=== PATIENT | female | born 1970 | race Two or more races ===

== ENCOUNTER 2025-02-26 21:58 | Emergency (ER) | payer SELFPAY ==
[2025-02-26 22:01] VITALS: BMI 26.8
[2025-02-26 22:15] VITALS: BP 185/88; PULSE 71; RESP 16; TEMP 36.9; O2SAT 98
--- NOTE | 2025-02-26 23:00 | PD.EDALLER ---
ED Allergic Reaction RME/HPI General Chief complaint: Allergic Reaction Stated complaint: ALLERGY Arrival date/time: 02/26/25 21:58 RME / HPI RME / HPI narrative: Dr. Mckee?s Main ED Evaluation: 54yo female with a history of HTN presents to the ED for an allergic reaction. Patient states she ate a doreen and banana tonight, reporting she started having right eye swelling, throat swelling, and shortness of breath 30 minutes later, so she came in for evaluation. Patient denies using any new soaps, makeup or taking any new medications. Patient denies any other associated symptoms. Related Data Previous Rx's ?Medication ?Instructions ?Recorded diphenhydramine HCl 50 mg capsule 50 mg PO TID PRN allergic reaction 02/27/25 #20 caps prednisone 50 mg tablet 50 mg PO QDAY #5 tabs 02/27/25 Allergies Allergy/AdvReac Type Severity Reaction Status Date / Time No Known Allergies Allergy Verified 02/26/25 22:19 Review of Systems Review of Systems Systems Reviewed: All systems reviewed, normal except as documented Past Medical History Past Medical History CARDIAC: Positive Hypertension; Negative Congestive Heart Failure RESPIRATORY: Negative Chronic Obstructive Pulmonary Disease (COPD) GENITOURINARY: Negative Renal Disease ENDOCRINE: Negative Diabetes Mellitus Type 1 or Diabetes Mellitus Type 2 Social History SMOKING STATUS: Never smoker ED Exam Narrative Physical exam: GENERAL APPEARANCE: AxOx4, generally well-appearing, no acute distress. HEENT: NC, AT. MMM. EOMI, clear conjunctiva, swelling to the right eye without any tenderness or erythema, oropharynx clear. uvular swelling. NECK: Supple without lymphadenopathy. No stiffness or restricted ROM. HEART: Normal rate and regular rhythm, normal S1/S1, no m/r/g LUNGS: CTAB, moving air well. No crackles or wheezes are heard. ABDOMEN: Soft, nontender, nondistended with good bowel sounds heard. BACK: No midline C/T/L spine pain or deformity, No CVAT, no obvious deformity. EXTREMITIES: Without cyanosis, clubbing or edema. MUSCULOSKELETAL: FROM of all major joints, no chest tenderness NEUROLOGICAL: Grossly nonfocal. Alert and oriented, moving all 4 extremities. CN not formally tested but appear grossly intact. Skin: Warm and dry without any rash. Course Course Course Narrative: Observation began at 2300 and was necessary in order to determine if the patient will have worsening or improvement of symptoms. 0204: Patient is now able to open her right eye. Patient does have some uvular swelling, but is resting comfortably without any difficulty. Upon reevaluation, observation revealed that the patient should be discharged. Observation ended at 0204. Total time of observation 4 hours Quality Measures none Orders Category Date Time Status DiphenhydrAMINE INJ [Benadryl Inj] Med 02/26/25 22:58 Discontinued 50 mg IV X1 ONE Famotidine Inj [Pepcid Inj] Med 02/26/25 22:58 Discontinued 40 mg IVP X1 ONE predniSONE Med 02/26/25 22:58 Discontinued 60 mg PO X1 ONE Vital Signs Vital signs: Vital Signs Temperature 98.5 F 02/26/25 22:15 Pulse Rate 71 02/26/25 22:15 Respiratory Rate 16 02/26/25 22:15 Blood Pressure 185/88 H 02/26/25 22:15 Pulse Oximetry (%) 98 02/26/25 22:15 Oxygen Delivery Method Room Air 02/26/25 22:15 Allergic Reaction MDM Narrative MDM Narrative:: Scribe Attestation: 02/26/25 Nisha Kapadia am scribing for and in the presence of Dr. Mckee. Patient data External records reviewed:: [facility] previous records (Per chart review, patient has no previous ED visits or admissions to this facility.) Clinical information provided by:: patient Social determinants that could affect healthcare access:: none Patient has the following chronic illnesses:: HTN How is presenting disease/condition affected by chronic disease/condition?: uneffected by Evaluation data The following diagnostics were reviewed and interpreted by me:: other (specify) (none) Lab and/or radiology exams considered but not ordered:: none Interpretation Summary: none Medications / Prescriptions Medications or Prescriptions considered but not ordered:: none Medication administrations:: Medication Administration History Discontinued Medications Diphenhydramine HCl (Diphenhydramine Inj 50 Mg/Ml Vial) 50 mg IV X1 ONE Stop: 02/26/25 22:59 Last Admin: 02/26/25 23:25 Dose: 50 mg Documented By: JABARI Famotidine (Famotidine Inj 10 Mg/Ml Vial 2 Ml) 40 mg IVP X1 ONE Stop: 02/26/25 22:59 Last Admin: 02/26/25 23:25 Dose: 40 mg Documented By: JABARI Prednisone (Prednisone 20 Mg Tablet) 60 mg PO X1 ONE Stop: 02/26/25 22:59 Last Admin: 02/26/25 23:25 Dose: 60 mg Documented By: JABARI see above Consultations Consultation(s) initiated? (list below): No Diagnosis Differential Diagnosis allergic reaction: anaphylaxis, allergic reaction, angioedema and urticaria Most likely diagnosis given after review of the tests above:: see clinical impression below Admission Indicated Admission indicated?: not indicated Disposition Plan Disposition Plan: Discharge Discharge Attestation Discharge Attestation: The patient and all family members were given an opportunity to ask questions and understood the discharge instructions. Discharge instructions specifically effects, indications for sooner follow up or return to the emergency department, and the expected course of current diagnosis. Patient condition: Stable Discharge Plan Plan Patient Disposition: HOME (Self Care) Prescriptions/Referrals Prescriptions/Med Rec: New prednisone 50 mg tablet 50 mg PO QDAY Qty: 5 0RF diphenhydramine HCl 50 mg capsule 50 mg PO TID PRN (Reason: allergic reaction) Qty: 20 0RF Referrals: No Primary/Family,Physician [Primary Care Provider] - In 1 week Problem List Clinical Impression: Allergic reaction Patient/Caregiver Discharge Instructions Additional Instructions: Evite los mangos. [place] todos los medicamentos seg?n lo prescrito. Consulte con jim m?dico de cabecera en 2 o 3 d?as si los s?ntomas no mejoran. Puede regresar a urgencias antes si los s?ntomas empeoran o si nota alg?n problema nuevo o preocupante. Print Language: Wolof Stand Alone Forms: Monique Award Info., Patient Portal Info Letter
[2025-02-26] MEDS: DiphenhydrAMINE INJ 50 MG/ML VIAL IV (23:25)
[2025-02-26] MEDS: FAMOTIDINE INJ 10 MG/ML VIAL 2 ML 40 MG IVP (23:25)
[2025-02-26] MEDS: predniSONE 20 MG TABLET 60 MG PO (23:25)
[2025-02-26 23:27] VITALS: BP 170/91; PULSE 66; RESP 19; O2SAT 96
[2025-02-27 00:02] VITALS: BP 182/88; PULSE 63; RESP 19; TEMP 36.8; O2SAT 98
--- NOTE | 2025-02-27 01:05 | PC.NURSE ---
PATIENT WAS BROUGHT BACK INTO ROOM 4, SISTER STATING POSSIBLE SEIZURE ACTIVITY WHILE WAITING FOR TRANSPORTATION. SISTER STATES PATIENT CONFUSED STAFF FOR HIS FATHER AND PATIENT WAS STATING STOP, STOP, STOP, AND THATS WHEN STAFF HELPED PATIENT BACK INTO ROOM 4. PATIENT IS ALERT AND RESPONSIVE AT THIS TIME. PATIENT FOLLOWING COMMANDS AND PATIENT STATING I WANT TO GO HOME.
[2025-02-27 02:08] VITALS: BP 162/83; PULSE 60; RESP 17; TEMP 36.6; O2SAT 97
== END 2025-02-27 02:27 | disposition home or self-care (01) ==
PROVIDERS: Emergency Provider Emergency Medicine
DX: T78.1XXA Other adverse food reactions, not elsewhere classified, initial encounter (principal); R22.0 Localized swelling, mass and lump, head; R06.02 Shortness of breath
CPT/HCPCS: 96374; 99284; J1200; J3490; J7512